=== PATIENT | female | born 1985 | race Two or more races ===

== ENCOUNTER 2025-07-27 13:15 | Inpatient (IN) | payer OTHER ==
[~2025-07-27] VITALS: Ht 154.9 cm; Wt 63.0 kg
[2025-07-30] VITALS (8 sets, daily range): BP systolic 105–134; BP diastolic 55–90
[2025-07-30] MEDS ORDERED: PRENATABS RX T1 EACH PO (06:09)
[2025-07-30] MEDS ORDERED: PEPCID AC20 MG PO (06:10)
[2025-07-30] MEDS ORDERED: RINGERS SOLUTION,LACTATED 1,000 ML IV SCH (06:15)
[2025-07-30] MEDS ORDERED: MORPHINE SULFATE 4 MG/ML CARTRIDGE IV PRN (06:15)
[2025-07-30 07:11] LABS: BASO % 0.4 % (0.1-1.2); EOS # 0.14 (0.04-0.54); EOS % 1.2 % (0.7-7.0); LYMPH # 2.01 (1.18-3.74); LYMPH % 17.9 % (19.3-53.1); MEAN PLATELET VOLUME 10.70 fl (9.4-12.4); MONO # 0.95 (0.24-0.82); MONO % 8.5 % (4.7-12.5); NEUT # 7.87 (1.56-6.13); NEUT % 70.3 % (34.0-71.1); RED CELL DISTRIBUTION WIDTH 14.4 % (11.6-14.4)
[2025-07-30 07:51] LABS: ALT/SGPT 23.0 U/L (12-78); AST/SGOT 19.0 U/L (15-37); BILIRUBIN TOTAL 0.21 mg/dL (0.3-1.2); BUN CREA RATIO 23.0 (7.0-25.0); CREATININE SERUM 0.43 mg/dL (0.55-1.02); GFR 162.63; GLOBULINA 4.3 G/DL (2.4-3.5); GLUCOSE FASTING 87.0 mg/dL (65-100); INR < 0.93; OSMOLALITY SERUM 276.0 MOSM/KG (275-295)
[2025-07-30] MEDS ORDERED: OXYTOCIN 20 UNITS/1000ML RL PIGGYBAG IV ONE (09:48)
[2025-07-30] MEDS ORDERED: CHLORHEXIDINE GLUCONATE 120 ML BOTTLE TOP ONE (09:48)
[2025-07-30] MEDS ORDERED: ERYTHROMYCIN BASE OPHT 1GM EACH TUBE OP ONE (09:48)
[2025-07-30] MEDS ORDERED: LIDOCAINE HCL 1% 10ML VIAL ONE (09:49)
[2025-07-30] MEDS ORDERED: ONDANSETRON HCL 2 MG/ML VIAL ONE (10:26)
[2025-07-30] MEDS ORDERED: OXYTOCIN 20 UNITS/500ML RL PIGGYBAG IV ONE (10:43)
[2025-07-30] MEDS ORDERED: OXYTOCIN 500 ML IV ONE (11:15)
[2025-07-30] MEDS ORDERED: ONDANSETRON HCL 2 MG/ML VIAL IV ONE (11:30)
[2025-07-30] MEDS ORDERED: OXYTOCIN 1,000 ML IV ONE (15:30)
[2025-07-30] MEDS ORDERED: CHLORHEXIDINE GLUCONATE 120 ML BOTTLE TP SCH (15:30)
[2025-07-30] MEDS ORDERED: DOCUSATE SODIUM 100MG CAP PO SCH (17:00)
[2025-07-31 01:35] VITALS: BP 103/67
[2025-07-31 04:25] VITALS: BP 100/64
[2025-07-31 06:52] LABS: BASO % 0.3 % (0.1-1.2); EOS # 0.13 (0.04-0.54); EOS % 0.9 % (0.7-7.0); LYMPH # 2.53 (1.18-3.74); LYMPH % 16.7 % (19.3-53.1); MEAN PLATELET VOLUME 10.60 fl (9.4-12.4); MONO # 1.04 (0.24-0.82); MONO % 6.8 % (4.7-12.5); NEUT # 11.31 (1.56-6.13); NEUT % 74.4 % (34.0-71.1); RED CELL DISTRIBUTION WIDTH 14.5 % (11.6-14.4)
[2025-07-31 08:00] VITALS: BP 108/73
[2025-07-31] MEDS ORDERED: PNV,CALCIUM 72/IRON/FOLIC ACID 1 TAB TABLET PO SCH (09:00)
[2025-07-31 16:00] VITALS: BP 114/74
[2025-08-01 00:52] VITALS: BP 116/74
[2025-08-01 04:00] VITALS: BP 119/77
[2025-08-01 10:13] VITALS: BP 111/72
== END 2025-08-01 16:51 | disposition home or self-care (01) | DRG 807 ==
LOC: LDR 07-30 05:36 → OB/GYN 07-30 05:36 → LDR 07-30 05:54 → OB/GYN 07-30 13:12
PROVIDERS: Obstetrics & Gynecology Gynecology; ADMIT Obstetrics & Gynecology; ATTEND Obstetrics & Gynecology
PROC: 10E0XZZ Delivery of Products of Conception, External Approach (ICD-10-PCS; principal; 2025-07-30)
PROC: 0UQG7ZZ Repair Vagina, Via Natural or Artificial Opening (ICD-10-PCS; 2025-07-30)
PROC: 0W8NXZZ Division of Female Perineum, External Approach (ICD-10-PCS; 2025-07-30)
PROC: 4A1HXCZ Monitoring of Products of Conception, Cardiac Rate, External Approach (ICD-10-PCS; 2025-07-30)
DX: O71.82 Other specified trauma to perineum and vulva (principal); Z37.0 Single live birth; Z3A.39 39 weeks gestation of pregnancy